=== PATIENT | male | born 1990 | race Caucasian/White ===

== ENCOUNTER 2017-10-02 07:24 | Emergency (ER) | payer SELFPAY ==
[~2017-10-02] VITALS: Ht 165.1 cm; Wt 68.0 kg
[2017-10-02 07:33] VITALS: BP 134/76; PULSE 76; RESP 17; TEMP 98.7; O2SAT 100
[2017-10-02] MEDS ORDERED: predniSONE 50 MG TAB PO ONE (07:45)
[2017-10-02] MEDS ORDERED: diphenhydrAMINE HCL 25 MG CAP PO ONE (07:45)
[2017-10-02] MEDS ORDERED: PRED50 PO (07:50)
--- NOTE | 2017-10-02 07:50 | PD ---
HPI Chief Complaint: Skin Problem Time Seen by Provider: 07:43 Travel History International Travel<30 days: No Contact w/Intl Traveler<30days: No Traveled to known affect area: No History of Present Illness HPI Patient is a 27-year-old male who comes in due to his back. He says he has had the rash for 2 weeks. He says it is itchy, not painful. He denies any new exposures. He denies any allergies. He denies any new medications. He denies any medical problems. He denies any other symptoms. Severity is mild. [facility] Past Medical History Medical History: Denies Significant Hx Past Surgical History Surgical History: No Previous Surgery Social History Tobacco Use: No Allergies-Medications (Allergen,Severity, Reaction): Coded Allergies: No Known Allergies (Verified Allergy, Unknown, 10/02/17) Reported Meds & Prescriptions Reported Meds & Active Scripts Active Prednisone 50 Mg Tab 50 Mg PO DAILY 3 Days Review of Systems General / Constitutional: No: Fever, Chills HENT: No: Headaches, Lightheadedness Cardiovascular: No: Chest Pain or Discomfort Respiratory: No: Shortness of Breath Gastrointestinal: No: Nausea, Vomiting Musculoskeletal: No: Myalgias Skin: Positive Rash, Positive Itching Neurologic: No: Weakness, Dizziness Physical Exam Narrative GENERAL: Awake and alert, in no acute distress. SKIN: Small, erythematous papules over most of the back, a few on the chest. No surrounding erythema or warmth. HEAD: Atraumatic. Normocephalic. EYES: Pupils equal and round. No scleral icterus. ENT: Mucous membranes pink and moist. CARDIOVASCULAR: Regular rate and rhythm. No murmur appreciated. RESPIRATORY: No accessory muscle use. Clear to auscultation. Breath sounds equal bilaterally. MUSCULOSKELETAL: No obvious deformities. No clubbing. No cyanosis. No edema. NEUROLOGICAL: Awake and alert. No obvious cranial nerve deficits. Motor grossly within normal limits. Normal speech. Data Data Last Documented VS Vital Signs Date Time Temp Pulse Resp B/P (MAP) Pulse Ox O2 Delivery O2 Flow Rate FiO2 10/02/17 08:12 97.8 78 16 120/81 (94) 99 10/02/17 07:33 Room Air Orders Orders Diphenhydramine (Benadryl) (10/02/17 07:45) Prednisone (Deltasone) (10/02/17 07:45) Ed Discharge Order (10/02/17 07:51) [facility] Medical Decision Making Medical Screen Exam Complete: Yes Emergency Medical Condition: Yes Differential Diagnosis Eczema versus pityriasis rosacea versus allergic reaction Narrative Course Patient is a 27-year-old male comes in complaining of a rash on his back. Nurse Naima used as official court interpreter. Exam shows no evidence of infection. Patient advised to use Selsun Blue on his back. Given a short course of steroids as well as some Benadryl. Advised follow-up with dermatology. Advised return to the ED as needed for any worsening symptoms. Diagnosis Primary Impression: Rash Patient Instructions: Acute Rash (ED), General Instructions Additional Instructions: Follow up with dermatology. Use Selsun Blue soap on your back. Try hypoallergenic detergents. Take Benadryl as needed for itching. Return to the ED as needed for any worsening symptoms. Scripts Prednisone (Prednisone) 50 Mg Tab 50 MG PO DAILY for 3 Days, #3 TAB 0 Refills Prov: Patricia Castro MD 10/02/17 Disposition: 01 DISCHARGE HOME Condition: Stable Patricia Castro MD Oct 02, 2017 07:50
[2017-10-02 08:12] VITALS: BP 120/81; TEMP 97.8
== END 2017-10-02 08:12 | disposition home or self-care (01) ==
LOC: NEPE 07:24
DX: R21 Rash and other nonspecific skin eruption (principal)
CPT/HCPCS: 99283; J7512